=== PATIENT | male | born 1995 | race Caucasian/White ===

== ENCOUNTER 2019-09-28 23:05 | Inpatient (IN) | payer MEDICAID, SELFPAY ==
--- NOTE | 2019-09-28 23:08 | ECG_ITS ---
[facility] Test Date: 2019-09-29 Pat Name: Santos Olson Department: Room: 154 Gender: Male Clinical Leader: : 1995 Requested By: Magy Franco Order Number: [id number] Cooper MD: Corey Crisostomo M.D. Measurements Intervals [place] Rate: 93 P: 40 DE: 153 QRS: 5 QRSD: 120 T: 41 QT: 356 QTc: 443 Interpretive Statements SINUS RHYTHM MODERATE INTRAVENTRICULAR CONDUCTION DELAY [110+ ms QRS DURATION] Compared to ECG 01/18/2019 05:52:18 Intraventricular conduction delay now present Sinus tachycardia no longer present Indeterminate axis no longer present Electronically Signed On 09-29-2019 1:24:08 CDT by Corey Crisostomo M.D. [id number]
[2019-09-28 23:33] VITALS: BP 138/82; PULSE 109; RESP 16; TEMP 36.8; O2SAT 98
--- NOTE | 2019-09-29 00:15 | W.ED.PSYCH ---
HPI - Psych General: Chief Complaint: Psychiatric Symptoms Stated Complaint: si/mhe Time Seen by Provider: 09/28/19 23:54 Source: patient Limitations: other (Patient not cooperative) History of Present Illness: HPI Narrative: Santos is a 23-year-old male who comes in complaining of suicidal ideation. Patient is very withdrawn and not cooperative and appears to have a defiant attitude. He does not want to share with me what is going on. He does state though he is suicidal and has a plan or may have a plan but will not give me any definitive statement. He does request that he comes into the neuropsychiatric unit for help. Review of Systems General: Reports: Other (Patient uncooperative) Physical Exam Const: COMMON NORMALS: no acute distress, patient oriented x3, no limitations, healthy appearing and well nourished GENERAL APPEARANCE: cooperative, well kempt and well developed HENMT: COMMON NORMALS: normocephalic, atraumatic, external ears normal, EAC's normal and Normal external nose present HEAD & SCALP: normal to inspection, normocephalic and atraumatic FACE & SINUS: normal facial exam and face symmetric NOSE: Normal external nose present and Normal nares present EXTERNAL EAR: Yes external ears normal EXTERNAL AUDITORY CANAL: EAC's normal MOUTH: Normal oral and palatal mucosa present, lip normal and tongue normal Eye: COMMON NORMALS: Equal, round and reactive pupils present and conjunctivae normal GENERAL EYE: appearance normal, both eyes and all related structures ALIGNMENT: Yes alignment normal PERIORBITAL: periorbital findings normal EYELID: eyelids normal CONJUNCTIVA: Yes conjunctivae normal SCLERA: sclerae normal PUPIL: Yes Equal, round and reactive pupils present Neck/C-Spine: COMMON NORMALS: full ROM, no lymphadenopathy, supple, no meningeal signs and no JVD GENERAL: Yes normal visual inspection and Yes trachea midline Chest: COMMONS NORMALS: normal inspection of the chest and normal palpation of entire chest wall Resp: COMMON NORMALS: normal respiratory effort, No retractions and No use of accessory muscles EFFORT & INSPECTION: Yes able to speak in complete sentences and Yes symmetric chest movement AUSCULTATION: no crackles, no rales, no rhonchi and no wheezes Cardio: COMMON NORMALS: no JVD, regular rate, regular rhythm, S1 normal heart sound present and S2 normal heart sound present RATE: regular rate RHYTHM: regular rhythm HEART SOUNDS: S1 normal heart sound present, S2 normal heart sound present, no click, no gallops, no murmurs, no rubs and abnormal split S2 GI: COMMON NORMALS: Soft to palpation and No hepatosplenomegaly present PALPATION: Yes Soft to palpation, No Tenderness to palpation present (GI), No Guarding due to palpation present (GI), No Rigid due to palpation, Yes No hepatosplenomegaly present, No Hernia present, No Palpable mass present and No Pulsatile mass present : COMMON NORMALS: Yes no CVA tenderness BLADDER/KIDNEY EXAM: Yes no CVA tenderness Back/Pelvis: COMMON NORMALS: no CVA tenderness, thoracic and lumbar spine normal to inspection, no thoracic nor lumbar tenderness and thoraco-lumbar ROM normal Extremity: COMMON NORMALS: normal to inspection, full ROM, capillary refill normal, no joint enlargement, no clubbing, cyanosis or edema and no calf tenderness Neuro: COMMON NORMALS: patient oriented x3, CN's II-XII intact bilaterally, moves all extremities, no focal motor deficits and no sensory deficits noted MENINGEAL SIGNS: Yes no meningeal signs SPEECH: speech normal Psych: COMMON NORMALS: mental status grossly normal, Normal thought process present, cooperative, normal affect, speech normal and activity/motor behavior normal APPEARANCE: Yes well kempt SPEECH: Yes normal speech THOUGHT PROCESS: Normal thought process present Skin: COMMON NORMALS: no rashes or lesions noted, turgor normal, no jaundice, no petechiae and no mottling GENERAL SKIN EXAM: no rashes or lesions noted and turgor normal MDM - Psych MDM Narrative: Medical decision making narrative: The case was reviewed with Dr. Huff, he agrees that the patient is reluctant to cooperate with still admits to suicidal ideation he is high risk. He agrees to admitting the patient to the hospital for further evaluation and care. Lab Data: Labs: Lab Results 09/29/19 Range/Units 00:19 WBC 18.0 H (4.0-10.0) 10^3/ uL RBC 4.85 (4.1-5.3) 10^6/u L Hgb 13.9 (11.7-16.6) g/dL Hct 42.0 (42.0-52.0) % MCV 86.6 (80-94) fL MCH 28.7 (28.0-34.0) pg MCHC 33.1 (30.0-36.0) g/dL RDW 12.1 (12.1-15.1) % Plt Count 226 (130-400) 10^3/c mm MPV 9.3 (7.4-10.4) fL Neut % (Auto) 76.3 % Lymph % (Auto) 13.7 % Stanton % (Auto) 7.4 % Eos % (Auto) 1.8 % Baso % (Auto) 0.3 % Neut # (Auto) 13.73 H (1.8-7.7) 10^3/u L Lymph # (Auto) 2.5 (0.8-4.8) 10^3/u L Stanton # (Auto) 1.3 H (0.2-0.9) 10^3/u L Eos # (Auto) 0.3 (0.0-0.8) 10^3/u L Baso # (Auto) 0.1 (0.0-0.1) 10^3/u L Nucleated RBC % (a uto) 0 % Nucleated RBCs # 0.0 /100WBC EKG Data^: EKG 1: Attestation: I personally reviewed and interpreted this EKG as follows: EKG interpretation date: 09/29/19 EKG interpretation time: 00:37 Interpretation: Normal sinus rhythm at 93 beats a minute, nonspecific interventricular conduction delay, no acute ST or T wave changes, normal QTC. Discharge Plan Discharge Patient Disposition: Admitted As Inpatient Admit Provider: Crow Huff Clinical Impression: Suicidal ideation Condition: Stable Discharge Date/Time: 09/29/19 01:04 Coding Level of Care Code ED [employer] Swe[employer] Operator for Chg Fwd Exam Comprehensive
[2019-09-29 00:28] LABS: Basophils # 0.1 10^3/uL (0.0-0.1); Basophils % 0.3 %; Eosinophils # 0.3 10^3/uL (0.0-0.8); Eosinophils % 1.8 %; Hemoglobin 13.9 g/dL (11.7-16.6); Lymphocytes # 2.5 10^3/uL (0.8-4.8); Lymphocytes % 13.7 %; Mean Corpuscular HGB Conc 33.1 g/dL (30.0-36.0); Mean Corpuscular Hemoglobin 28.7 pg (28.0-34.0); Mean Corpuscular Volume 86.6 fL (80-94); Mean Platelet Volume 9.3 fL (7.4-10.4); Monocytes # 1.3 10^3/uL (0.2-0.9); Monocytes % 7.4 %; Neutrophils # 13.73 10^3/uL (1.8-7.7); Neutrophils % 76.3 %; Nucleated Red Blood Cells % 0 %; Platelet Count 226 10^3/cmm (130-400); Red Blood Count 4.85 10^6/uL (4.1-5.3); Red Cell Distribution Width 12.1 % (12.1-15.1)
[2019-09-29 00:50] LABS: Alanine Aminotransferase 17 U/L (0-41); Albumin Level 4.4 g/dL (3.5-5.2); Alkaline Phosphatase 77 IU/L (40-130); Anion Gap 14.3 (5-19); Aspartate Amino Transferase 12 U/L (0-40); Blood Urea Nitrogen 14 mg/dL (6-20); Calcium 8.6 mg/dL (8.5-10.5); Carbon Dioxide 24 mmol/L (22-29); Chloride 103 mmol/L (98-107); Glomerular Filtration Rate 139.8 mL/min (90-130); Glucose 121 mg/dL (65-115); Osmolality Calculated 283 mOsm/kg (285-295); Potassium 3.3 mmol/L (3.5-5.1); Sodium 138 mmol/L (136-145); Thyroid Stimulating Hormone 0.83 uIU/mL (0.27-4.20); Total Bilirubin 0.7 mg/dL (0.15-1.2); Total Protein 7.4 g/dL (6.6-8.7)
[2019-09-29 00:51] VITALS: BP 124/87; PULSE 71; RESP 18; O2SAT 97
[2019-09-29 00:54] LABS: Acetaminophen < 5.0 ug/mL (10-30); Alcohol Level < 10 mg/dL (0-10); Salicylate < 0.3 mg/dL (3-10)
[2019-09-29 01:17] LABS: Phenytoin Dilantin 0.8 ug/mL (10-20); Valproic Acid Level 2.8 ug/mL (50-100)
[2019-09-29 01:31] VITALS: BP 132/91; PULSE 95; RESP 13; TEMP 37; O2SAT 97
[2019-09-29 01:41] LABS: Lithium 0.1 mmol/L (0.6-1.2)
[2019-09-29 03:15] LABS: Amphetamines Screen Urine Positive (Negative); Barbiturates Screen Urine Negative (Negative); Benzodiazepines Screen Urine Negative (Negative); Cocaine Screen Urine Negative (Negative); Opiate Screen Urine Negative (Negative); PCP Screen Urine Negative (Negative); THC Screen Urine Negative (Negative)
[2019-09-29 06:00] VITALS: BP 132/80; PULSE 87; RESP 15; TEMP 36.4; O2SAT 96
[2019-09-29 14:00] VITALS: BP 135/70; PULSE 80; RESP 20; TEMP 37.2; O2SAT 97
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
[2019-09-29] MEDS: hyDROXYzine 25 mg Capsule 50 MG PO (21:44)
[2019-09-29] MEDS: trazodone 50 mg Tablet PO (21:44)
[2019-09-29] MEDS: OLANZapine 5 mg ODT PO (21:44)
[2019-09-29 22:00] VITALS: BP 127/87; PULSE 87; RESP 16; TEMP 36.8; O2SAT 98
[2019-09-30 06:00] VITALS: BP 116/75; PULSE 69; RESP 17; TEMP 36.9; O2SAT 96
--- NOTE | 2019-09-30 12:52 | PM.NPN ---
Subjective NPU Subjective: Interval history: Santos presents today with some slight improvement in his psychomotor retardation and was able to be more interactive in the interview. He still struggling to stay awake other than to take care of his basic needs as withdrawal from methamphetamine. He does report wanting to get off of the drugs as well as restart his medications. We discussed the risks benefits and alternatives of restarting his medications at appropriate doses and he understood and agreed to proceed in this note. Mental Status Exam MSE Comments: This is a well-nourished well-developed white male with limited progress, grooming and eye contact. No abnormal movements except for significant psychomotor retardation. More cooperative on exam in mild distress. Speech was limited and decreased rate and volume. Mood described as depressed affect congruent. Thought process organized. Thought content: Patient endorsed suicidal ideation but denied homicidal ideation and no delusions reported noted he denied any auditory or visual hallucinations attention and concentration were impaired memory is unreliable and not formally tested. He is semi-alert and oriented ?3. Insight and judgment are impaired. Impulse control are limited. Vitals/I&O/Wt Last Vital Signs Temp 98.4 F 09/30/19 06:00 Pulse 69 09/30/19 06:00 Resp 17 09/30/19 06:00 BP 116/78 09/30/19 06:00 Pulse Ox 96 09/30/19 06:00 Weight last 48 hrs Weight 87.09 kg Data NPU : 09/29/19 00:19 09/29/19 00:19 A&P Additional A&P Information (1) Depression: (2) Anxiety: (3) Methamphetamine addiction: (4) Withdrawal from methamphetamine: (5) Suicidal ideation: This is a 23-year-old white male with a history of methamphetamine addiction and mood dysregulation sometimes entering on psychosis who presents today with limited interaction with this field underwriter due to methamphetamine withdrawal but endorsing being off his medication and needing to get things back on track. 1. Continue current medications. Restart Abilify 10 mg by mouth every morning and Celexa 20 mg by mouth every morning. 2. Continue every 15 minute checks for safety. 3. Encourage individual, group and milieu therapy. 4. Will work with treatment team on Wednesday to find a sober living follow-up at the highest level of care to which he is willing to commit. Involuntary Hold Information 96 Hour Hold: 96 Hour Involuntary Admission: Yes 96 Hour Hold Ending Date: 10/04/19 96 Hour Hold Ending Time: 23:40 Attestations NPU Medical Necessity Statement*: Inpatient hospitalization is medically necessary and the clinically appropriate intervention at this time. Will monitor medications to make changes as indicated. Likely stay 3-5 days. Coding Level of Care Code Acute Bottling Attendant for Ruddy Guerrero
[2019-09-30 14:00] VITALS: BP 114/76; PULSE 88; RESP 18; TEMP 36.6; O2SAT 94
[2019-09-30] MEDS: ARIPiprazole 10 mg Tablet PO (14:12)
[2019-09-30] MEDS: citalopram 20 mg Tablet PO (14:12)
[2019-09-30] MEDS: OLANZapine 5 mg ODT PO (21:56)
[2019-09-30] MEDS: trazodone 50 mg Tablet PO (21:56)
[2019-09-30] MEDS: hyDROXYzine 25 mg Capsule 50 MG PO (21:56)
[2019-09-30 22:00] VITALS: BP 141/98; PULSE 102; RESP 18; TEMP 36.9; O2SAT 96
[2019-10-01 06:00] VITALS: BP 123/76; PULSE 67; RESP 16; TEMP 36.6; O2SAT 95
[2019-10-01] MEDS: ARIPiprazole 10 mg Tablet PO (08:38)
[2019-10-01] MEDS: citalopram 20 mg Tablet PO (08:38)
--- NOTE | 2019-10-01 11:55 | P.PN_ITS ---
Subjective NPU Subjective: Interval history: Santos presents today continuing to have significant psychomotor retardation. He is spending most of his time isolated to his but not causing any problems. He has okay restoring his medications he was taking before his last hospitalization. An essentially was sleeping most of the day. Mental Status Exam MSE Comments: This is a well-nourished well-developed white male with limited dress, grooming and eye contact. No abnormal movements except for significant psychomotor retardation. Mostly operative on exam in mild distress. Speech was limited and decreased rate and volume. Mood described as depressed affect congruent. Thought process organized. Thought content: Patient denied suicidal or homicidal ideation and no delusions reported noted he denied any auditory or visual hallucinations. Attention and concentration were impaired and memory is unreliable and but none were formally tested. He is semi-alert and oriented ?3. Insight and judgment are impaired. Impulse control are limited. Vitals/I&O/Wt Last Vital Signs Temp 98.7 F 10/01/19 20:24 Pulse 90 10/01/19 20:24 Resp 18 10/01/19 20:24 BP 125/74 10/01/19 20:24 Pulse Ox 96 10/01/19 20:24 Weight last 48 hrs Weight 87.09 kg Data NPU : 09/29/19 00:19 09/29/19 00:19 A&P Additional A&P Information (1) Depression: (2) Anxiety: (3) Methamphetamine addiction: (4) Withdrawal from methamphetamine: (5) Suicidal ideation: This is a 23-year-old white male with a history of methamphetamine addiction and mood dysregulation sometimes entering on psychosis who presents today with limited interaction with this software writer due to methamphetamine withdrawal but endorsing being off his medication and needing to get things back on track. 1. Continue current medications. 2. Continue every 15 minute checks for safety. 3. Encourage individual, group and milieu therapy. 4. Will work with treatment team on Wednesday to find a sober living follow-up at the highest level of care to which he is willing to commit. Involuntary Hold Information 96 Hour Hold: 96 Hour Involuntary Admission: Yes 96 Hour Hold Ending Date: 10/04/19 96 Hour Hold Ending Time: 23:40 Attestations NPU Medical Necessity Statement*: Inpatient hospitalization is medically necessary and the clinically appropriate intervention at this time. Will monitor medications to make changes as indicated. Likely stay 2-4 days. Coding Level of Care Code Acute Multiple Tube Winding Machine Operator for Ruddy Guerrero
[2019-10-01 14:00] VITALS: BP 118/64; PULSE 96; RESP 20; TEMP 36.6; O2SAT 99
[2019-10-01 20:24] VITALS: BP 125/74; PULSE 90; RESP 18; TEMP 37.1; O2SAT 96
[2019-10-02 06:00] VITALS: BP 122/76; PULSE 77; RESP 13; TEMP 37.6; O2SAT 97
[2019-10-02] MEDS: citalopram 20 mg Tablet PO (08:43)
[2019-10-02] MEDS: ARIPiprazole 10 mg Tablet PO (08:43)
--- NOTE | 2019-10-02 12:53 | PM.NPN ---
Subjective NPU Subjective: Interval history: Santos presents today for the first time able to really talk about his presentation here. He reports that he found a good friend about 5 days ago. He reports that he was very traumatic to find a body unexpectedly as his friend had a massive heart attack but then he started feeling like he should be the one to tell his daughter and family. Which created a lot of anxiety and he ended up making some poor choices and using and now he is coming out of the withdrawal. He is eating fine and he continues to sleep a lot. Mental Status Exam MSE Comments: This is a well-nourished well-developed white male with limited dress, grooming and eye contact. No abnormal movements except for improving psychomotor retardation. Cooperative on exam in no acute distress. Speech was decreased rate and volume. Mood described as a little better, affect congruent. Thought process organized. Thought content: Patient denied suicidal or homicidal ideation and no delusions reported noted he denied any auditory or visual hallucinations. Attention and concentration were intact and memory is more reliable and but none were formally tested. He is semi-alert and oriented ?3. Insight and judgment are improving. Impulse control is limited. Vitals/I&O/Wt Last Vital Signs Temp 97.3 F L 10/02/19 20:06 Pulse 116 H 10/02/19 20:06 Resp 17 10/02/19 20:06 BP 148/80 10/02/19 20:06 Pulse Ox 92 10/02/19 20:06 Weight last 48 hrs Weight 87.09 kg Data NPU : 09/29/19 00:19 09/29/19 00:19 A&P Additional A&P Information (1) Depression: (2) Anxiety: (3) Methamphetamine addiction: (4) Withdrawal from methamphetamine: (5) Suicidal ideation: This is a 23-year-old white male with a history of methamphetamine addiction and mood dysregulation sometimes bordering on psychosis who presents today with improve interaction with his provider, tolerating his medication and being more open to discussing his circumstances.. 1. Continue current medications. 2. Continue every 15 minute checks for safety. 3. Encourage individual, group and milieu therapy. 4. Will work with treatment team on Wednesday to find a sober living follow-up at the highest level of care to which he is willing to commit. Involuntary Hold Information 96 Hour Hold: 96 Hour Involuntary Admission: Yes 96 Hour Hold Ending Date: 10/04/19 96 Hour Hold Ending Time: 23:40 Attestations NPU Medical Necessity Statement*: Inpatient hospitalization is medically necessary and the clinically appropriate intervention at this time. Will monitor medications to make changes as indicated. Likely stay 2-3 days. Coding Level of Care Code Acute Commutator V Ring Assembler for Ruddy Guerrero
[2019-10-02 14:00] VITALS: BP 104/68; PULSE 77; RESP 20; TEMP 36.9; O2SAT 95
[2019-10-02 20:06] VITALS: BP 148/80; PULSE 116; RESP 17; TEMP 36.3; O2SAT 92
[2019-10-03 06:00] VITALS: BP 137/84; PULSE 88; RESP 12; TEMP 36.6; O2SAT 95
[2019-10-03] MEDS: ARIPiprazole 10 mg Tablet PO (08:10)
[2019-10-03] MEDS: citalopram 20 mg Tablet PO (08:10)
[2019-10-03 14:00] VITALS: BP 108/72; PULSE 95; RESP 18; TEMP 36.8; O2SAT 98
--- NOTE | 2019-10-03 16:56 | PM.NPN ---
Subjective NPU Subjective: Interval history: Santos presents today continuing to show improvement and adjusting the medication. He met with the treatment team and was developing a plan for what to do next. We reviewed his situation and discussed the risks benefits and alternatives of him discharging tomorrow most likely and he understood and agreed to proceed as documented in his note. Mental Status Exam MSE Comments: This is a well-nourished well-developed white male with adequate dress, grooming and eye contact. No abnormal movements except for resolving psychomotor retardation. Cooperative with exam in no acute distress. Speech was more normal rate and volume. Mood described as a getting better, affect congruent. Thought process organized. Thought content: Patient denied suicidal or homicidal ideation and no delusions reported noted he denied any auditory or visual hallucinations. Attention and concentration were intact and memory is more reliable and but none were formally tested. He is alert and oriented ?3. Insight and judgment are improving. Impulse control is limited. Vitals/I&O/Wt Last Vital Signs Temp 98.4 F 10/03/19 20:07 Pulse 94 10/03/19 20:07 Resp 16 10/03/19 20:07 BP 128/81 10/03/19 20:07 Pulse Ox 96 10/03/19 20:07 Data NPU : 09/29/19 00:19 09/29/19 00:19 A&P Additional A&P Information (1) Depression: (2) Anxiety: (3) Methamphetamine addiction: (4) Withdrawal from methamphetamine: (5) Suicidal ideation: This is a 23-year-old white male with a history of methamphetamine addiction and mood dysregulation sometimes bordering on psychosis who presents today with improved interaction with his provider, tolerating his medication and being more open to discussing his circumstances.. 1. Continue current medications. 2. Continue every 15 minute checks for safety. 3. Encourage individual, group and milieu therapy. 4. Will work with treatment team on Wednesday to find a sober living follow-up at the highest level of care to which he is willing to commit. Involuntary Hold Information 96 Hour Hold: 96 Hour Involuntary Admission: Yes 96 Hour Hold Ending Date: 10/04/19 96 Hour Hold Ending Time: 23:40 Attestations NPU Medical Necessity Statement*: Inpatient hospitalization is medically necessary and the clinically appropriate intervention at this time. Will monitor medications to make changes as indicated. Likely stay 1-2 days Coding Level of Care Code Acute Data Sciences Director for Ruddy Guerrero
[2019-10-03 20:07] VITALS: BP 128/81; PULSE 94; RESP 16; TEMP 36.9; O2SAT 96
[2019-10-04 06:00] VITALS: BP 144/86; PULSE 77; RESP 17; TEMP 36.7; O2SAT 97
[2019-10-04] MEDS: citalopram 20 mg Tablet PO (08:12)
[2019-10-04] MEDS: ARIPiprazole 10 mg Tablet PO (08:12)
[2019-10-04 11:10] VITALS: BP 144/86; PULSE 77; RESP 17; TEMP 36.7; O2SAT 97
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
[2019-10-04 11:49] VITALS: BP 144/86; PULSE 77; RESP 17; TEMP 36.7; O2SAT 97
== END 2019-10-04 11:59 | disposition home or self-care (01) | DRG 880 ==
LOC: ER 09-29 00:15 → NP 09-29 00:52
PROVIDERS: Emergency Medicine; Admitting Provider Psychiatry & Neurology Psychiatry; Visit Provider Psychiatry & Neurology Psychiatry
DX: F41.8 Other specified anxiety disorders (principal); F15.23 Other stimulant dependence with withdrawal; Z63.4 Disappearance and death of family member
CPT/HCPCS: 12345; 80053; 80156; 80164; 80178; 80185; 80306; 80307; 82542; 84443; 85025; 93005; 99284; 99285

== ENCOUNTER 2020-04-01 19:30 | Inpatient (IN) | payer MEDICAID, SELFPAY ==
[2020-04-01 19:42] VITALS: BP 127/83; PULSE 91; RESP 16; TEMP 36.3; O2SAT 100; BMI 28.5
--- NOTE | 2020-04-01 20:01 | ECG_ITS ---
[facility] Test Date: 2020-04-01 Pat Name: Santos Olson Department: Room: Gender: Male Head Of Mathematics: : 1995 Requested By: Latoya Pantoja Order Number: [id number] Allison MD: Melissa Rodriguez M.D. Measurements Intervals [place] Rate: 88 P: 56 UT: 155 QRS: -1 QRSD: 122 T: 45 QT: 364 QTc: 441 Interpretive Statements SINUS RHYTHM MODERATE INTRAVENTRICULAR CONDUCTION DELAY [110+ ms QRS DURATION] Compared to ECG 09/29/2019 00:37:07 No significant changes Electronically Signed On 04-02-2020 20:15:34 MACHINE HAMPER [employer]KER by Melissa Rodriguez M.D. [email or web address]
--- NOTE | 2020-04-01 20:03 | W.ED.PSYCH ---
HPI - Psych General: Chief Complaint: Psychiatric Symptoms Stated Complaint: psych eval- no si/hi Time Seen by Provider: 04/01/20 19:32 History of Present Illness: HPI Narrative: 24 year old male presents to the ED with increased schizophrenic symptoms - reports increased auditory hallucinations, reports out of his medication x 1-2 weeks, when asked where he gets his medication, he reports from behavioral health. [facility] medication has been filled through [facility] pharmacy, out of refills. Reports recent substance abuse, methamphetamine 2 days ago. He denies alcohol use. He is requesting admission to the stress unit to get rid of the voices. Reports living in a storage container in [place]; [facility] does not have a steady place to live. He reports his family will have nothing to do with him, his family lives here in [place]. He has history of suicidal ideations, September 2019 when he was previously admitted, was under the care of Dr. Huff; he ran out of medication with return of auditory hallucinations, diagnosed with depression and anxiety. He denies suicidal/homicidal ideation plans or thoughts; he is complaining of increased auditory hallucinations upon exam and reports they are very bothersome to him and increasing his stress level. He reports voices are calling his name; he reports voices are not giving him commands or ideas. MD complaint: feels depressed and other (increased auditory hallucinations) Onset (ago): week(s) (1-2) Duration: intermittent and getting worse History of same: Yes Relieving factors: medication Exacerbating factors: drug use Context: recent drug abuse, not taking psychiatric medications and significant life stressor (homeless status) Associated psychiatric symptoms: depression and auditory hallucinations Associated symptoms: Reports auditory hallucinations and depression (increased x 2 days); Deny visual hallucinations, homicidal ideation or suicidal ideation Treatments prior to arrival: none Review of Systems General: Reports: 10 or more systems reviewed and unremarkable except in HPI and below Const: Denies: fever(s), chills, body aches, fatigue, malaise or diaphoresis Eyes: Denies: change in vision, blurry vision, eye discomfort, eye redness or increased production of tears ENMT: Denies: throat pain, hoarseness, dental pain, ear or mastoid pain, disequilibrium, nasal discharge, nasal congestion, nasal obstruction or post nasal drip Card: Denies: chest pain, palpitations, irregular heart rhythm, swelling of feet/ankles, syncope, dyspnea on exertion, orthopnea or leg pain with exertion Resp: Denies: dyspnea, productive cough, non-productive cough, wheezing, change in phlegm color or chest congestion GI: Denies: abdominal pain, nausea, vomiting, dysphagia, early satiety, diarrhea, constipation or pain on defecation : Denies: difficulty urinating, dysuria, urinary urgency or nocturia Musc: Denies: neck pain, back pain, joint pain, joint swelling, joint stiffness, muscle cramps or muscle weakness Skin/Breast: Denies: rash, pruritus, erythema, skin swelling, changing lesions or changes in skin color Neuro: Reports: sensory changes (fingertips and toes - blames cold temperature for changes in sensation); Denies: headache(s), weakness in extremities, difficulty walking, vertigo, confusion, behavioral changes or involuntary movements Psych: Reports: anxiety (increased x 2 days), depression (increased x 2 days), hopelessness and auditory hallucinations; Denies: paranoia, visual hallucinations, tactile hallucinations, suicidal ideation or homicidal ideation Burt/Lymph: Denies: easy bruising PFS ED PFSH: Social History (Updated 04/01/20 @ 20:17 by Latoya Jackson ZYGLO INSPECTOR) Smoking and tobacco status: current every day smoker cigarettes Packs smoked per day: 1 Number of cigarettes per day: 1-5 Quit status (tobacco): not considering quitting Desire information about alcohol rehabilitation?: No Substance/Drug Use: current Substance/Drug use frequency: few times a week Substance/Drug use type: Amphetamines Desire information about substance/drug rehabilitation?: No Adopted: No Caregiver/support person: No Lives independently: Yes Housing: Homeless Marital status: Single Physical Exam Const: COMMON NORMALS: no acute distress, patient oriented x3, healthy appearing and alert EXAM LIMITATIONS: no altered mental status, no behavioral limitations and no physical limitations GENERAL APPEARANCE: cooperative, comfortable, well kempt, well developed and well hydrated; not anxious and not combative ORIENTATION/CONSCIOUSNESS: Yes awake, Yes oriented to person, Yes oriented to place and Yes oriented to time; not confused and not patient obtunded HENMT: COMMON NORMALS: normocephalic, atraumatic, external ears normal, TM's normal bilaterally, Normal external nose present and moist oral mucous membranes HEAD & SCALP: normal to inspection, normocephalic and atraumatic; no hematoma, no laceration, no occipital foramen tenderness and no raccoon eyes FACE & SINUS: normal facial exam, sinuses nontender and face symmetric NOSE: Normal external nose present and Normal nares present EXTERNAL EAR: Yes external ears normal TYMPANIC MEMBRANE: TM's normal bilaterally MOUTH: Normal oral and palatal mucosa present and tongue normal THROAT: posterior oropharynx normal and uvula midline Eye: COMMON NORMALS: Equal, round and reactive pupils present and EOMs intact bilaterally GENERAL EYE: appearance normal, both eyes and all related structures PUPIL: Yes Equal, round and reactive pupils present Neck/C-Spine: COMMON NORMALS: full ROM and no lymphadenopathy GENERAL: Yes normal visual inspection and Yes trachea midline CERVICAL SPINE: Yes cervical ROM normal Lymph: LYMPHATIC: no lymphadenopathy noted Chest: COMMONS NORMALS: normal inspection of the chest and normal palpation of entire chest wall CHEST: Yes Symmetrical chest wall rise Resp: COMMON NORMALS: normal respiratory effort, No retractions, No use of accessory muscles and clear to auscultation bilaterally EFFORT & INSPECTION: Yes able to speak in complete sentences AUSCULTATION: clear to auscultation bilaterally, no wheezes and lung sounds not diminished Cardio: COMMON NORMALS: regular rate, regular rhythm, S1 normal heart sound present, S2 normal heart sound present and Peripheral pulses 2+ throughout RATE: regular rate RHYTHM: regular rhythm HEART SOUNDS: S1 normal heart sound present and S2 normal heart sound present PERIPHERAL PULSES: Peripheral pulses 2+ throughout GI: COMMON NORMALS: Normal to inspection, nondistended, normoactive bowel sounds present, Soft to palpation and non-tender INSPECTION: Yes normal to inspection PALPATION: Yes Soft to palpation, No Guarding due to palpation present (GI), No Splenomegaly present and No Hernia present : COMMON NORMALS: Yes no CVA tenderness BLADDER/KIDNEY EXAM: Yes no CVA tenderness Back/Pelvis: COMMON NORMALS: no CVA tenderness, thoracic and lumbar spine normal to inspection, no thoracic nor lumbar tenderness, thoraco-lumbar ROM normal and straight leg raise negative bilaterally Extremity: COMMON NORMALS: normal to inspection, full ROM, capillary refill normal, no joint enlargement, no clubbing, cyanosis or edema, no calf tenderness and no pedal edema GENERAL: Yes normal exam except as noted Neuro: OLGA COMA SCALE: document GCS findings Olga coma scale eye opening: Spontaneous Olga coma scale verbal response: Orientated Olga coma scale motor response: Obey commands Olga coma scale total score: 15 COMMON NORMALS: patient oriented x3 and no focal motor deficits SENSORIUM/ORIENTATION: Yes alert, Yes oriented to person, Yes oriented to place and Yes oriented to time SPEECH: speech normal GAIT: Yes Normal gait present SENSORY EXAM: No sensory level loss detected MONOFILAMENT EXAM PERFORMED: Yes Monofilament Exam (small fiber function): L great toe: normal, L 3rd toe: normal, L 5th toe: normal, R great toe: normal, R 3rd toe: normal and R 5th toe: normal MOTOR EXAM: 5/5 motor strength present throughout, Pronator motor function not present, no tremor noted and Normal motor muscle tone present throughout Right pupil size (mm): 4 Left pupil size (mm): 4 Psych: COMMON NORMALS: mental status grossly normal, cooperative, speech normal, activity/motor behavior normal, denies homicidal ideation and denies suicidal ideation APPEARANCE: Yes grossly normal and Yes well kempt ATTITUDE: Yes Withdrawn affect present ACTIVITY/MOTOR BEHAVIOR: Yes appropriate eye contact SPEECH: Yes normal speech and Yes delayed MOOD & AFFECT: Yes Flat affect present THOUGHT PROCESS: Circumstantial thought process present THOUGHT CONTENT: Yes Hallucination(s) present auditory INSIGHT: Fair insight present (Psych) JUDGEMENT: Fair judgement present (Psych) Skin: COMMON NORMALS: no rashes or lesions noted and turgor normal GENERAL SKIN EXAM: no rashes or lesions noted and turgor normal MDM - Psych MDM Narrative: Medical decision making narrative: 24-year-old male patient presents to the emergency department requesting admission into the psychiatric stress unit due to increased auditory hallucinations. He is noncompliant with maintenance medication, citalopram, benztropine and Abilify. Upon medication review, last fill of medication completed on 12/06/[address] Huff. He received 30-day supply of citalopram and benztropine, 15 tablets of Abilify. He states does not see another psychiatrist nor does he attend outpatient services at [facility]. Previous inpatient psychiatric admission September 2019 with similar complaint. CBC unremarkable, chemistry with slightly low potassium, 3.4, was replaced with 20 mEq of potassium here in the ED; glucose 121, TSH normal, urine drug screen positive for methamphetamines, urinalysis with 2+ blood, patient asymptomatic and has no abdominal or urinary complaints. EtOH, Tylenol and salicylate levels all below normal, spoke with Dr. Tomas who agrees for admission into the psychiatric unit. Patient is requesting admission into the psychiatric unit due to increased stress, anxiety and depression associated with auditory hallucinations. He is voluntary. Denies homicidal or suicidal ideations plans or thoughts. Lab Data: Labs: Lab Results 04/01/20 04/01/20 04/01/20 Range/Units 20:20 20:20 20:35 WBC 9.9 (4.0-10.0) 10^3/ uL RBC 5.17 (4.1-5.3) 10^6/u L Hgb 14.8 (11.7-16.6) g/dL Hct 44.1 (42.0-52.0) % MCV 85.3 (80-94) fL MCH 28.6 (28.0-34.0) pg MCHC 33.6 (30.0-36.0) g/dL RDW 11.9 L (12.1-15.1) % Plt Count 311 (130-400) 10^3/c mm MPV 9.6 (7.4-10.4) fL Neut % (Auto) 59.1 % Lymph % (Auto) 31.3 % [place] % (Auto) 6.0 % Eos % (Auto) 2.9 % Baso % (Auto) 0.5 % Neut # (Auto) 5.84 (1.8-7.7) 10^3/u L Lymph # (Auto) 3.1 (0.8-4.8) 10^3/u L [place] # (Auto) 0.6 (0.2-0.9) 10^3/u L Eos # (Auto) 0.3 (0.0-0.8) 10^3/u L Baso # (Auto) 0.1 (0.0-0.1) 10^3/u L Nucleated RBC % (a uto) 0 % Nucleated RBCs # 0.0 /100WBC Sodium 138 (136-145) mmol/L Potassium 3.4 L (3.5-5.1) mmol/L Chloride 103 (98-107) mmol/L Carbon Dioxide 25 (22-29) mmol/L Anion Gap 13.4 (5-19) BUN 8 (6-20) mg/dL Creatinine 0.6 L (0.7-1.2) mg/dL GFR Calculation 165.5 H (90-130) mL/min Glucose 121 H (65-115) mg/dL Calculated Osmolal ity 286 (285-295) mOsm/k g Calcium 9.0 (8.5-10.5) mg/dL Total Bilirubin 0.2 (0.15-1.2) mg/dL AST 9 (0-40) U/L ALT 15 (0-41) U/L Alkaline Phosphata se 60 (40-130) IU/L Total Protein 6.2 L (6.6-8.7) g/dL Albumin 3.9 (3.5-5.2) g/dL Globulin 2.3 (1.3-4.6) g/dL TSH 0.46 (0.27-4.20) uIU/ mL Urine Color Yellow (Yellow) Urine Appearance Clear (CLEAR) Urine pH 9 H (5-7) Ur Specific Gravit y 1.010 (1.005-1.030) Urine Protein 2+ H (Negative) Urine Glucose (UA) Norm (Normal) Urine Ketones Negative (Negative) Urine Blood 2+ H (Negative) Urine Nitrate Negative (Negative) Urine Bilirubin Neg (Negative) Urine Urobilinogen Norm (Negative) mg/dL Ur Leukocyte Genny ase Negative (Negative) Urine RBC 0-4 H (0-2) /hpf Urine WBC 10-15 H (0-5) /hpf Ur Squamous Epith Cells 0-4 H (0-5) /hpf Amorphous Sediment Not Reportable Urine Bacteria 1+ H (NONE) /hpf Salicylates < 0.3 L (3-10) mg/dL Urine Opiates Scre en (Negative) ng/mL Acetaminophen < 5.0 L (10-30) ug/mL Ur Barbiturates Sc reen (Negative) ng/mL Ur Phencyclidine S crn (Negative) ng/mL Ur Amphetamines Sc reen (Negative) ng/mL U Benzodiazepines Scrn (Negative) ng/mL Urine Cocaine Scre en (Negative) ng/mL U Marijuana (THC) Screen (Negative) ng/mL Ethyl Alcohol < 10 (0-10) mg/dL 04/01/20 Range/Units 20:35 WBC (4.0-10.0) 10^3/ uL RBC (4.1-5.3) 10^6/u L Hgb (11.7-16.6) g/dL Hct (42.0-52.0) % MCV (80-94) fL MCH (28.0-34.0) pg MCHC (30.0-36.0) g/dL RDW (12.1-15.1) % Plt Count (130-400) 10^3/c mm MPV (7.4-10.4) fL Neut % (Auto) % Lymph % (Auto) % [place] % (Auto) % Eos % (Auto) % Baso % (Auto) % Neut # (Auto) (1.8-7.7) 10^3/u L Lymph # (Auto) (0.8-4.8) 10^3/u L [place] # (Auto) (0.2-0.9) 10^3/u L Eos # (Auto) (0.0-0.8) 10^3/u L Baso # (Auto) (0.0-0.1) 10^3/u L Nucleated RBC % (a uto) % Nucleated RBCs # /100WBC Sodium (136-145) mmol/L Potassium (3.5-5.1) mmol/L Chloride (98-107) mmol/L Carbon Dioxide (22-29) mmol/L Anion Gap (5-19) BUN (6-20) mg/dL Creatinine (0.7-1.2) mg/dL GFR Calculation (90-130) mL/min Glucose (65-115) mg/dL Calculated Osmolal ity (285-295) mOsm/k g Calcium (8.5-10.5) mg/dL Total Bilirubin (0.15-1.2) mg/dL AST (0-40) U/L ALT (0-41) U/L Alkaline Phosphata se (40-130) IU/L Total Protein (6.6-8.7) g/dL Albumin (3.5-5.2) g/dL Globulin (1.3-4.6) g/dL TSH (0.27-4.20) uIU/ mL Urine Color (Yellow) Urine Appearance (CLEAR) Urine pH (5-7) Ur Specific Gravit y (1.005-1.030) Urine Protein (Negative) Urine Glucose (UA) (Normal) Urine Ketones (Negative) Urine Blood (Negative) Urine Nitrate (Negative) Urine Bilirubin (Negative) Urine Urobilinogen (Negative) mg/dL Ur Leukocyte Genny ase (Negative) Urine RBC (0-2) /hpf Urine WBC (0-5) /hpf Ur Squamous Epith Cells (0-5) /hpf Amorphous Sediment Urine Bacteria (NONE) /hpf Salicylates (3-10) mg/dL Urine Opiates Scre en Negative (Negative) ng/mL Acetaminophen (10-30) ug/mL Ur Barbiturates Sc reen Negative (Negative) ng/mL Ur Phencyclidine S crn Negative (Negative) ng/mL Ur Amphetamines Sc reen Positive H (Negative) ng/mL U Benzodiazepines Scrn Negative (Negative) ng/mL Urine Cocaine Scre en Negative (Negative) ng/mL U Marijuana (THC) Screen Negative (Negative) ng/mL Ethyl Alcohol (0-10) mg/dL EKG Data^: EKG 1: EKG interpretation date: 04/01/20 EKG interpretation time: 20:55 Prior EKG tracings: available for review (09/29/2019) Other EKG comments: Sinus rhythm,borderline ECG, moderate intraventricular conduction delay, ventricular rate 88; no acute changes from 09/29/2019 Discharge Plan Discharge Patient Disposition: Admitted As Inpatient Admit Provider: Thania Tomas Clinical Impression: Auditory hallucinations, Methamphetamine abuse Condition: Stable Coding Level of Care Code ED Laborer Adjustable Steel Joist for Chg Fwd Exam Comprehensive
[2020-04-01 20:18] VITALS: BP 117/69; PULSE 89; RESP 14; O2SAT 97
--- NOTE | 2020-04-01 20:18 | PC.PHAR ---
pt states he ran out of his medications about a week ago-ext med history shows celexa 20mg daily and benztropine 1mg bid was last filled on 12/06/2019 30d/s and aripiprazole 10mg daily for a 15d/s
[2020-04-01 20:33] LABS: Basophils # 0.1 10^3/uL (0.0-0.1); Basophils % 0.5 %; Eosinophils # 0.3 10^3/uL (0.0-0.8); Eosinophils % 2.9 %; Hematocrit 44.1 % (42.0-52.0); Hemoglobin 14.8 g/dL (11.7-16.6); Lymphocytes # 3.1 10^3/uL (0.8-4.8); Lymphocytes % 31.3 %; Mean Corpuscular HGB Conc 33.6 g/dL (30.0-36.0); Mean Corpuscular Hemoglobin 28.6 pg (28.0-34.0); Mean Corpuscular Volume 85.3 fL (80-94); Mean Platelet Volume 9.6 fL (7.4-10.4); Monocytes # 0.6 10^3/uL (0.2-0.9); Neutrophils # 5.84 10^3/uL (1.8-7.7); Neutrophils % 59.1 %; Nucleated Red Blood Cells % 0 %; Platelet Count 311 10^3/cmm (130-400); Red Blood Count 5.17 10^6/uL (4.1-5.3); Red Cell Distribution Width 11.9 % (12.1-15.1); White Blood Count 9.9 10^3/uL (4.0-10.0)
[2020-04-01 20:55] VITALS: BP 112/68; PULSE 95; RESP 16; O2SAT 97
[2020-04-01 21:04] LABS: Alanine Aminotransferase 15 U/L (0-41); Albumin Level 3.9 g/dL (3.5-5.2); Alkaline Phosphatase 60 IU/L (40-130); Anion Gap 13.4 (5-19); Aspartate Amino Transferase 9 U/L (0-40); Blood Urea Nitrogen 8 mg/dL (6-20); Carbon Dioxide 25 mmol/L (22-29); Chloride 103 mmol/L (98-107); Globulin 2.3 g/dL (1.3-4.6); Glomerular Filtration Rate 165.5 mL/min (90-130); Glucose 121 mg/dL (65-115); Osmolality Calculated 286 mOsm/kg (285-295); Potassium 3.4 mmol/L (3.5-5.1); Sodium 138 mmol/L (136-145); Thyroid Stimulating Hormone 0.46 uIU/mL (0.27-4.20); Total Bilirubin 0.2 mg/dL (0.15-1.2); Total Protein 6.2 g/dL (6.6-8.7)
[2020-04-01 21:16] LABS: Amphetamines Screen Urine Positive (Negative); Barbiturates Screen Urine Negative (Negative); Benzodiazepines Screen Urine Negative (Negative); Cocaine Screen Urine Negative (Negative); Opiate Screen Urine Negative (Negative); PCP Screen Urine Negative (Negative); THC Screen Urine Negative (Negative)
[2020-04-01 21:17] LABS: Acetaminophen < 5.0 ug/mL (10-30); Alcohol Level < 10 mg/dL (0-10); Salicylate < 0.3 mg/dL (3-10)
[2020-04-01 21:32] LABS: Urine Appearance Clear (CLEAR); Urine Color Yellow (Yellow)
[2020-04-01 21:33] LABS: Add Urine Microscopic? YES; Bacteria Urine 1+ /hpf; Bilirubin Urine Neg (Negative); Blood Urine 2+ (Negative); Glucose Urine UA Norm (Normal); Ketones Urine Negative (Negative); Leukocyte Esterase Urine Negative (Negative); Nitrate Urine Negative (Negative); Protein Urine 2+ (Negative); RBC Urine 0-4 /hpf (0-2); Squamous Epithelial Cell Urine 0-4 /hpf (0-5); Urobilinogen Urine Norm (Negative); pH Urine 9 (5-7)
[2020-04-01 21:34] LABS: Add Urine Culture? Yes
[2020-04-01 21:35] VITALS: BP 116/75; PULSE 86; RESP 16; O2SAT 96
[2020-04-01 22:00] VITALS: BP 121/64; PULSE 85; RESP 14; O2SAT 95
[2020-04-01 23:37] VITALS: BP 102/63; PULSE 86; RESP 18; TEMP 36.5; O2SAT 97
[2020-04-01] MEDS: hyDROXYzine 25 mg Capsule 50 MG PO (23:51)
[2020-04-01] MEDS: trazodone 50 mg Tablet PO (23:51)
[2020-04-02 06:24] VITALS: BP 122/75; PULSE 78; RESP 18; TEMP 36.5; O2SAT 98
--- NOTE | 2020-04-02 10:46 | P.HP_ITS ---
Providers/Chief Complaint Admitting Physician: Thania Tomas DO Chief Complaint: Worsening auditory hallucinations, depression HPI NPU History of Present Illness Santos Olson is a 24 year old male with reported history of bipolar disorder, schizophrenia and longstanding polysubstance abuse presented to the emergency department with complaint of worsening auditory hallucinations, depressive symptoms. Patient denied any suicidal ideation or thoughts about self-harm but reports that he has ongoing stressors to include being homeless with minimal support. Patient reports being off his medication for several months and states that he had not seen a mental health provider since his last psychiatric admission in September 2019. Patient is a difficult historian providing very brief responses and stating that he does not recall past events or history, poor rapport although cooperates with interview with some prompting. Patient currently reports depressive symptoms, does not quantify, currently deny ing any suicidal ideation or thoughts about self-harm. Patient reports multiple past self-harm episodes and reports past suicide attempt by overdose with pills several years ago but denies any recent attempts or self-harm behavior. Patient reports recent worsening auditory hallucinations although currently denying any auditory hallucinations. When asked about temporal relationship with use of methamphetamine, patient unable to provide any period of time in which he had gone more than a few weeks without use of any substances. Patient not currently demonstrating any disorganized speech or behavior. Patient denies any past life-threatening trauma exposure, denies any PTSD symptoms Patient reports intermittent anxiety symptoms but denies any current anxiety symptoms, reports stress, worries secondary to ongoing life stress, living arrangement. Patient reports that he does not have any financial means currently of supporting himself but reports occasionally stealing in order to buy drugs. Reports being estranged from family. Patient reports being voluntary for medication stabilization, hospitalization. Review of Systems General: Reports: 10 or more systems reviewed and unremarkable except in HPI and below Meds NPU Home Medications Medication Instructions Recorded Confirmed Last Taken Type aripiprazole 10 mg PO DAILY 30 Days #30 tab 10/04/19 04/01/20 Unknown Rx benztropine 1 mg PO BID PRN 30 Days #60 tab 10/04/19 04/01/20 Unknown Rx citalopram 20 mg PO DAILY 30 Days #30 tab 10/04/19 04/01/20 Unknown Rx Allergies Allergy/AdvReac Type Severity Reaction Status Date / Time Influenza Virus Vaccines Allergy ADR-Muscle Verified 04/01/20 20:18 Pain PFSH NPU PFSH: Social History Smoking and tobacco status: current every day smoker cigarettes Packs smoked per day: 1 Number of cigarettes per day: 1-5 Quit status (tobacco): not considering quitting Desire information about alcohol rehabilitation?: No Substance/Drug Use: current Substance/Drug use frequency: few times a week Substance/Drug use type: Amphetamines Desire information about substance/drug rehabilitation?: No Adopted: No Caregiver/support person: No Lives independently: Yes Housing: Homeless Marital status: Single Other Psychiatric History: Other Psychiatric History: Patient provides minimal information but per chart review, patient with mental health contact as a young child. Reports previously being diagnosed as bipolar disorder, schizophrenia Reports multiple past psychiatric hospitalizations, states last psychiatric hospitalization was September 2019 at this facility Reports past suicide attempt by overdose, reports a couple of years ago, denies any recent self-harm behavior Mental Status Exam MSE Comments: Appears stated age, unshaven, stocky, wearing hospital scrubs, dirty hands, calm, dismissive but cooperative with interview after prompting, poor rapport, poor eye contact Psychomotor activity is neither increased nor decreased, no agitation Speech is normal rate and volume, spontaneous, fair articulation, not pressured I feel okay, full range, not labile Alert and oriented to person, place, time, situation Remote and recent memory is difficult to assess secondary to lack of participation, patient stating I do not remember Concentration is fair at best per interview Intellectual functioning appears to be average at best based on vocabulary, interview Thought process, linear but brief, no flight of ideas, no looseness of associations Thought content, no delusions, no hallucinations, does not appear to be attending to any internal stimuli, no suicidal or homicidal ideation Insight and judgment appear to be fair Vitals/I&O/Wt Last Vital Signs Temp 97.7 F 04/02/20 06:24 Pulse 78 04/02/20 06:24 Resp 18 04/02/20 06:24 BP 122/75 04/02/20 06:24 Pulse Ox 98 04/02/20 06:24 Weight last 48 hrs Weight 92.986 kg Data NPU : 04/01/20 20:20 04/01/20 20:20 A&P Assessment and plan (1) Psychosis: Status: Acute (2) Depression: Status: Acute (3) Methamphetamine abuse: Status: Acute Additional A&P Information Patient with longstanding history of bipolar disorder, schizophrenia although u nable to discern any clear periods of time of psychotic symptoms in the absence of any substance use currently presenting with worsening auditory loosening Nations in the context of recent methamphetamine use. Patient also reporting depressive symptoms which he states has responded to citalopram in the past but has been noncompliant since last psychiatric hospitalization in September 2019. Patient would likely benefit from medication stabilization and coordination for resources post discharge. VOLUNTARY ADMIT to inpatient psychiatry START citalopram 10 mg daily targeting depressive symptoms Continue observation for any worsening psychotic symptoms and for diagnostic clarification Coordinate with social media marketer for post discharge psychiatric follow-up and resources Involuntary Hold Information 96 Hour Hold: 96 Hour Involuntary Admission: No 96 Hour Hold Ending Date: 10/04/19 96 Hour Hold Ending Time: 23:40 Attestations NPU Medical Necessity Statement*: Patient requires psychiatric hospitalization for diagnostic clarification and medication stabilization as well as coordination for safe discharge including post discharge follow-up Anticipate patient's hospital stay exceeding 2 midnights Time Spent in Patient Care: Greater than 35 minutes (>than 50% of time spent in counselling and/or direct pt care on unit) . Coding Level of Care Code Acute Collet Maker for Ruddy Guerrero Diagnoses Psychosis F29 Depression F32.9 Methamphetamine abuse F15.10
--- NOTE | 2020-04-02 13:30 | PC.RESP ---
SMOKING CESSATION INFORMATION SENT TO PATIENT.
[2020-04-02 14:00] VITALS: BP 111/70; PULSE 80; RESP 80; TEMP 36.6; O2SAT 97
[2020-04-02 20:45] VITALS: BP 106/60; PULSE 78; RESP 19; TEMP 36.9; O2SAT 97
[2020-04-03 06:00] VITALS: BP 118/72; PULSE 74; RESP 19; TEMP 36.7; O2SAT 97
--- NOTE | 2020-04-03 12:14 | PM.NPN ---
Subjective NPU Subjective: Interval history: Denies any psychotic symptoms, denies any auditory or visual destinations, denies any delusions Continues report some depressive symptoms, no interval suicidal ideation Reports being compliant with his medication, denies any medication side effects Reports improving appetite Reports sleeping fair, feels rested No interval behavioral disturbances reported Mental Status Exam MSE Comments: Appears stated age, tired appearing, appropriately dressed, unkempt, calm, cooperative, interactive, good eye contact Psychomotor activity is somewhat decreased, no agitation Speech is low volume, normal rate, spontaneous, fair articulation, not pressured I feel little better, , constricted, not labile Alert and oriented to person, place, time, situation Memory and concentration appear to be intact primary Thought process, linear but brief, no flight of ideas, no looseness of associations Thought content, no delusions, no hallucinations, no suicidal homicidal ideation Insight and judgment appear to be fair Vitals/I&O/Wt Last Vital Signs Temp 98.1 F 04/03/20 06:00 Pulse 74 04/03/20 06:00 Resp 19 H 04/03/20 06:00 BP 118/72 04/03/20 06:00 Pulse Ox 97 04/03/20 06:00 Weight last 48 hrs Weight 92.986 kg Data NPU : 04/01/20 20:20 04/01/20 20:20 Micro: Microbiology 04/01/20 20:35 Urine Culture - Preliminary Urine,Clean Catch Microbiology 04/01/20 20:35 Urine,Clean Catch Urine Culture - Preliminary A&P Assessment and plan (1) Depression: Status: Acute Qualifiers: Depression Type: unspecified Qualified Code(s): F32.9 - Major depressive disorder, single episode, unspecified (2) Methamphetamine abuse: Status: Acute Additional A&P Information Continues to report significant depressive symptoms, denies any interval suicidal ideation, denies any interval psychotic symptoms CONTINUE current medication, continue to monitor Continue to encourage participation in unit milieu Involuntary Hold Information 96 Hour Hold: 96 Hour Involuntary Admission: No 96 Hour Hold Ending Date: 10/04/19 96 Hour Hold Ending Time: 23:40 Attestations NPU Medical Necessity Statement*: Continues require psychiatric hospitalization for medication stabilization as well as coordination for safe discharge Coding Level of Care Code Acute Multi Site Leasing Consultant for Ruddy Guerrero Diagnoses Depression F32.9 Depression Type: unspecified Methamphetamine abuse F15.10
[2020-04-03 13:38] VITALS: BP 127/66; PULSE 81; RESP 18; TEMP 36.4; O2SAT 97
[2020-04-03 19:42] VITALS: BP 131/74; PULSE 102; RESP 18; TEMP 37; O2SAT 95
[2020-04-03] MEDS: hyDROXYzine 25 mg Capsule 50 MG PO (19:54)
[2020-04-03] MEDS: trazodone 50 mg Tablet PO (19:55)
[2020-04-04 06:00] VITALS: BP 109/72; PULSE 70; RESP 17; TEMP 36.7; O2SAT 96
--- NOTE | 2020-04-04 12:31 | P.PN_ITS ---
Subjective NPU Subjective: Interval history: Denies any interval mood symptoms, denies any depressive symptoms, denies any suicidal ideation Denies any interval psychotic symptoms Reports interest in pursuing post discharge substance treatment but has not called yet but plans to call this afternoon Discussed potential discharge if patient is not participating in care Reports being compliant with medication, denies any medication side effects Mental Status Exam MSE Comments: Sitting on his bed, appropriately dressed, calm, cooperative, interactive, good eye contact Psychomotor activity is somewhat decreased, no agitation Speech is low volume, normal rate, spontaneous, fair articulation, not pressured I feel okay, , full range, not labile Alert and oriented to person, place, time, situation Memory and concentration appear to be intact primary Thought process, linear but brief, no flight of ideas, no looseness of associations Thought content, no delusions, no hallucinations, no suicidal homicidal ideation Insight and judgment appear to be fair Vitals/I&O/Wt Last Vital Signs Temp 98.1 F 04/04/20 06:00 Pulse 70 04/04/20 06:00 Resp 17 04/04/20 06:00 BP 109/72 04/04/20 06:00 Pulse Ox 96 04/04/20 06:00 Data NPU : 04/01/20 20:20 04/01/20 20:20 Micro: Microbiology 04/01/20 20:35 Urine Culture - Final Urine,Clean Catch Microbiology 04/01/20 20:35 Urine,Clean Catch Urine Culture - Final A&P Assessment and plan (1) Depression: Status: Acute Qualifiers: Depression Type: unspecified Qualified Code(s): F32.9 - Major depressive disorder, single episode, unspecified (2) Methamphetamine abuse: Status: Acute Additional A&P Information Patient reports improvement in mood, denies any interval psychotic symptoms CONTINUE current medication, continue to monitor Anticipate discharge tomorrow Involuntary Hold Information 96 Hour Hold: 96 Hour Involuntary Admission: No 96 Hour Hold Ending Date: 10/04/19 96 Hour Hold Ending Time: 23:40 Attestations NPU Medical Necessity Statement*: Continues to require psychiatric hospitalization for observation and coordinating for safe discharge Coding Level of Care Code Acute Head Insulation Board Saw Operator for Ruddy Fwkali Diagnoses Depression F32.9 Depression Type: unspecified Methamphetamine abuse F15.10
[2020-04-04 14:00] VITALS: BP 131/75; PULSE 96; RESP 18; TEMP 36.4; O2SAT 97
[2020-04-04] MEDS: citalopram 20 mg Tablet 10 MG PO (14:39)
[2020-04-04 22:00] VITALS: BP 145/83; PULSE 87; RESP 18; TEMP 36.6; O2SAT 95
--- NOTE | 2020-04-05 01:11 | PC.NURSE ---
PM Assessment Pt is smiling and talkative with staff. Pt reports using Meth to help with AH but says it backfired and made them worse and that is why he is here on the unit. Pt denies AH/VH at this time. Denies SI/HI. Heart/lung sounds are normal, v/s normal. pt denies pain. will continue to monitor pt for any changes of behavior or physical condition.
[2020-04-05 06:00] VITALS: BP 136/75; PULSE 68; RESP 17; TEMP 36.8; O2SAT 98
[2020-04-05] MEDS: citalopram 20 mg Tablet 10 MG PO (07:42)
--- NOTE | 2020-04-05 11:47 | PM.NPTHER ---
NPU Therapy Progress Note Therapy Progress Note Date: 04/04/20 Time In: 17:30 Time Out: 18:00 Symptoms Reported: Depression Mood: relaxed, open, sad Progress Note: SUBSTANCE ABUSE SERVICES DIRECTOR spoke with Santos who initially tells SUBSTANCE ABUSE SERVICES DIRECTOR that he has talked to many therapists and talking doesn't help anything ; however, he continues to speak with this SUBSTANCE ABUSE SERVICES DIRECTOR. He tells SUBSTANCE ABUSE SERVICES DIRECTOR about his childhood, being raised by his grandmother, and concerns that he may be a lost cause due to being so far away from the person he truly is. He recounts his grandmother looking in his eyes and telling me she doesn't even recognize me . He has shame from things done in the past but is not specific. He denies ever talking about these things in therapy and he says it is hard to talk. He exhibits some paranoid bx as he speaks about feeling he can be easily led when he lets his guard down and having no control over this. Santos say this is why he keeps his guard up most of the time. He does say he has tried to kill himself in the past but says it doesn't work . He ultimately believes he still has a purpose for living but is unsure if he can make the choices that would lead him there. He is concerned about not being able to get into [facility]:[address] [place] [address] and says what then? . SUBSTANCE ABUSE SERVICES DIRECTOR educated about [facility] services, and specifically therapy process. He was encouraged about his role in determining if the therapist he is put with will be compatible with him and ultimately, if not, to request a change. He was educated on ways therapist are trained to guide instead of his understanding of fixing his problems. Intervention: validation, education, reflective listening, encouragement Reported Goals Before Discharge: get in contact with [facility]: .
--- NOTE | 2020-04-05 12:12 | P.DS_ITS ---
Diagnoses at Discharge Discharge Diagnosis (1) Depression: Status: Acute Qualifiers: Depression Type: unspecified Qualified Code(s): F32.9 - Major depressive disorder, single episode, unspecified (2) Methamphetamine abuse: Status: Acute Reason for Visit Reason for Visit: Worsening auditory hallucinations, depression Hospital Course Hospital Course 24 year old male with reported history of bipolar disorder, schizophrenia and longstanding polysubstance abuse presented to the emergency department with complaint of worsening auditory hallucinations, depressive symptoms. Patient denied any suicidal ideation or thoughts about self-harm but reports that he has ongoing stressors to include being homeless with minimal support. Patient also reported that he had not followed up with psychiatry since his discharge from this facility in September 2019. Patient reported some auditory hallucinations at the time of admission but also had recent methamphetamine use. He was also reporting some depressive symptoms. Patient's auditory hallucinations quickly resolved within the first day of hospitalization and was started on citalopram 10 mg daily which she tolerated well. Reports that he had not been compliant wi th his medication after discharge from last psychiatric hospitalization. Patient reports difficulty with transportation and ability to get medication as reasons for his lack of compliance. Patient communicated his understanding of the need to abstain from the use of substances and alcohol as well as the need for substance treatment but was not particularly motivated throughout hospital stay and contacting resources. Patient did not demonstrate any behavioral disturbances throughout his hospital stay. He was not suicidal or psychotic at the time of discharge and did not appear to pose an imminent threat of harm to self or others. Low to moderate risk of harm to self and others given no current suicidal ideation or any psychotic symptoms although patient's risk may be elevated if he continues to abuse illicit substances or uses alcohol leading to unexpected, impulsive behavior. Risk mitigation included psychiatric hospitalization for observation, medication stabilization, recommendation to abstain from the use of substances and alcohol as well as coordination for safe discharge. Patient was able to communicate his understanding of the need to abstain from the use of substances and alcohol as well as the need for being compliant with his medication, medication management and substance counseling/treatment in order to further mitigate his risk of harm to self and others. Involuntary Hold Information 96 Hour Hold: 96 Hour Involuntary Admission: No 96 Hour Hold Ending Date: 10/04/19 96 Hour Hold Ending Time: 23:40 Mental Status Exam MSE Comments: Appropriately groomed and dressed, polite, interactive, good eye contact Psychomotor activity is somewhat decreased, no agitation Speech is normal volume, normal rate, spontaneous, fair articulation, not pressured I feel pretty good, , full range, not labile Alert and oriented to person, place, time, situation Memory and concentration appear to be intact primary Thought process, linear but brief, no flight of ideas, no looseness of associations Thought content, no delusions, no hallucinations, no suicidal homicidal ideation Insight and judgment appear to be fair Discharge Data Vitals: Last Vital Signs Temp 98.2 F 04/05/20 06:00 Pulse 68 04/05/20 06:00 Resp 17 04/05/20 06:00 BP 136/75 04/05/20 06:00 Pulse Ox 98 04/05/20 06:00 Discharge Plan Discharge Patient Disposition: Home Condition: Stable Prescriptions: Continued citalopram 20 mg tablet 20 mg PO DAILY 30 Days Qty: 30 RF: 1 Discontinued benztropine 1 mg Tablet 1 mg PO BID PRN (Reason: Mild Extrapyramidal symptoms) 30 Days Qty: 60 RF: 1 aripiprazole 10 mg tablet 10 mg PO DAILY 30 Days Qty: 30 RF: 0 Discharge Orders: Discharge Order (Routine); Ordered 04/05/20 Ordered By: Thania Tomas Discharge Diet: Regular Discharge Activity: Resume usual activity Discharge Attestations NPU Time Spent in Discharge Care*: greater than 30 min Coding Level of Care Code Acute Sliver Former for Ruddy Guerrero Diagnoses Depression F32.9 Depression Type: unspecified Methamphetamine abuse F15.10
[2020-04-05 12:15] VITALS: BP 136/75; PULSE 68; RESP 17; TEMP 36.8; O2SAT 98
== END 2020-04-05 12:59 | disposition home or self-care (01) | DRG 885 ==
LOC: ER 22:22 → NP 22:59
PROVIDERS: Admitting Provider Psychiatry & Neurology Psychiatry; Emergency Provider Nurse Practitioner Family; Visit Provider Psychiatry & Neurology Psychiatry
DX: F29 Unspecified psychosis not due to a substance or known physiological condition (principal); F32.9 Major depressive disorder, single episode, unspecified; F20.9 Schizophrenia, unspecified; Z59.0 Homelessness; F17.210 Nicotine dependence, cigarettes, uncomplicated; F15.10 Other stimulant abuse, uncomplicated
CPT/HCPCS: 12345; 80053; 80306; 80307; 81001; 84443; 85025; 87086; 93005; 99284

== ENCOUNTER 2020-05-22 23:26 | Emergency (ER) | payer MEDICAID, SELFPAY ==
[2020-05-22 23:47] VITALS: BP 144/83; PULSE 122; RESP 18; TEMP 36.7; O2SAT 98; BMI 33.0
--- NOTE | 2020-05-23 00:07 | USR_ITS ---
PROCEDURE INFORMATION: Exam: US Duplex Left Lower Extremity Veins, Limited Exam date and time: 05/23/2020 12:51 AM Age: 24 years old Clinical indication: Swelling (edema) of limb; Lower extremity, left; Additional info: Erythema and swelling lle/ ? abscess vs dvt, TECHNIQUE: Imaging protocol: Real-time Duplex ultrasound of the Left Lower Extremity with 2-D hair scale, color Doppler flow and spectral waveform analysis with image documentation. Limited exam focused on the left lower extremity veins. COMPARISON: No relevant prior studies available. FINDINGS: Left deep veins: Unremarkable. The common femoral, femoral, proximal profunda femoral and popliteal veins are patent without thrombus. Normal Doppler waveforms. Normal compressibility and/or augmentation response. Left superficial veins: Unremarkable. Saphenofemoral junction is patent without thrombus. Soft tissues: Unremarkable. US/CV venous duplex [facility] [id number] IMPRESSION: No evidence of deep vein thrombosis.
--- NOTE | 2020-05-23 00:07 | ED_ITS ---
HPI - Extremity Problem General: Chief complaint: Extremity Problem,Nontraumatic Stated complaint: LLE ABSCESS Time Seen by Provider: 05/22/20 23:31 History of Present Illness: HPI Narrative: 24-year-old male patient presents to the emergency department with left ankle and foot redness and swelling. He reports onset 2 days ago. States went to urgent care today and was advised to come to the ED for further evaluation. He denies trauma, denies injury, denies illicit substance abuse. He denies fever or chills. He reports pain with ambulation and flexion of his foot. He reports purple discoloration to the lateral ankle then developed redness and swelling 1 day later. MD Complaint: extremity pain and extremity swelling Onset (ago): day(s) (2) Pain Consistency: constant Location: left and lower extremity Severity scale (1-10): 5 Quality: aching and dull Radiation: proximal and distal Relieving factors: immobilization Exacerbating factors: weight bearing and walking Associated symptoms: Reports no associated symptoms; Deny chest pain, fever(s) or rash Review of Systems General: Reports: 10 or more systems reviewed and unremarkable except in HPI and below Const: Denies: fever(s), chills, body aches, fatigue, malaise or diaphoresis Eyes: Denies: blurry vision or eye redness ENMT: Denies: throat pain, dental pain or disequilibrium Card: Denies: chest pain, palpitations or irregular heart rhythm Resp: Denies: dyspnea, productive cough, non-productive cough or wheezing GI: Denies: abdominal pain, nausea or vomiting : Denies: dysuria Musc: Reports: joint pain, joint swelling and joint warmth; Denies: neck pain, back pain, muscle cramps or muscle weakness Skin/Breast: Denies: rash or pruritus Neuro: Denies: headache(s), weakness in extremities or behavioral changes Psych: Denies: anxiety or depression Burt/Lymph: Denies: easy bruising PFSH ED PFSH: Social History Smoking and tobacco status: current every day smoker cigarettes Packs smoked per day: 1 Quit status (tobacco): not considering quitting Desire information about alcohol rehabilitation?: No Desire information about substance/drug rehabilitation?: No Adopted: No Caregiver/support person: No Lives independently: Yes Housing: Homeless Marital status: Single Physical Exam Const: COMMON NORMALS: no acute distress, patient oriented x3, healthy appear ing and alert GENERAL APPEARANCE: cooperative, comfortable and well hydrated HENMT: COMMON NORMALS: normocephalic, Normal external nose present and moist oral mucous membranes HEAD & SCALP: normocephalic NOSE: Normal external nose present Eye: COMMON NORMALS: Equal, round and reactive pupils present and EOMs intact bilaterally GENERAL EYE: appearance normal, both eyes and all related structures PUPIL: Yes Equal, round and reactive pupils present Neck/C-Spine: COMMON NORMALS: full ROM and no lymphadenopathy GENERAL: Yes normal visual inspection and Yes trachea midline CERVICAL SPINE: Yes cervical ROM normal Lymph: LYMPHATIC: no lymphadenopathy noted Chest: COMMONS NORMALS: normal inspection of the chest and normal palpation of entire chest wall Resp: COMMON NORMALS: normal respiratory effort, No retractions, No use of accessory muscles and clear to auscultation bilaterally EFFORT & INSPECTION: Yes able to speak in complete sentences, No labored and No audible wheezes AUSCULTATION: clear to auscultation bilaterally Cardio: COMMON NORMALS: regular rate, regular rhythm, S1 normal heart sound present, S2 normal heart sound present and Peripheral pulses 2+ throughout RATE: regular rate RHYTHM: regular rhythm HEART SOUNDS: S1 normal heart sound present and S2 normal heart sound present PERIPHERAL PULSES: Peripheral pulses 2+ throughout GI: COMMON NORMALS: Normal to inspection, nondistended, normoactive bowel sounds present, Soft to palpation and non-tender INSPECTION: Yes normal to inspection PALPATION: Yes Soft to palpation : COMMON NORMALS: Yes no CVA tenderness BLADDER/KIDNEY EXAM: Yes no CVA tenderness Back/Pelvis: COMMON NORMALS: no CVA tenderness and thoracic and lumbar spine normal to inspection Extremity: COMMON NORMALS: normal to inspection, full ROM, capillary refill normal and no pedal edema GENERAL: Yes normal exam except as noted LEFT LOWER EXTREMITY: Yes ankle joint (erythema and edema present extending to the lateral foot) Left ankle: Yes palpation (tenderness of the medial and lateral malleolus), Yes ROM (Dorsi flexion extension intact but with pain) and Yes neurovascular exam (Distally intact) OTHER: Erythema of the left ankle, extending to the lateral foot, medial and lateral malleolus with tenderness as well as posterior lower calf. No abscess appreciated. No puncture wound or injury noted to the plantar or dorsal surface of the foot. Edema to the dorsal foot present as well. Erythema extends to the proximal lateral and medial malleolus. Neuro: COMMON NORMALS: patient oriented x3 and no focal motor deficits SENSORIUM/ORIENTATION: Yes alert Psych: COMMON NORMALS: mental status grossly normal, Normal thought process present and cooperative ACTIVITY/MOTOR BEHAVIOR: Yes appropriate eye contact THOUGHT PROCESS: Normal thought process present Skin: COMMON NORMALS: no rashes or lesions noted and turgor normal GENERAL SKIN EXAM: no rashes or lesions noted and turgor normal Course Vital Signs: Vital signs: Vital Signs Temperature 98.0 F 05/22/20 23:47 Pulse Rate 106 H 05/23/20 02:57 Respiratory Rate 18 05/23/20 02:57 Blood Pressure 132/80 05/23/20 02:57 Pulse Oximetry 98 05/23/20 02:57 MDM - Extremity (Nontraumatic) MDM Narrative: Medical decision making narrative: 24-year-old male patient presents to the emergency department with left lower extremity redness and swelling. He reports blue discoloration to the lateral malleolus 1 day prior to the onset of redness and swelling. He denies trauma or injury. Left ankle series revealed soft tissue swelling but no obvious fracture or displacement, radiology interpretation pending. Venous Doppler ultrasound of the left lower extremity did not reveal DVT or abscess. White blood count 18,000, elevated. K chemistry unremarkable, CRP 20.4, ESR 17, slightly elevated, patient did receive Tdap here in the ED. He also received 1 g of ceftriaxone. I discussed my concern regarding infection. He states has to go home as he has court appearance in the morning at 9 AM and cannot miss it. He agrees to return the emergency department if he develops fever chills or increased redness. He has maintained elevation of the left lower extremity during his stay, erythema to the foot, medial ankle has resolved, edema has improved, slight erythema remains to the lateral malleolus. He is able to dorsiflex and extend the left ankle/foot. Tendon exam intact. With improvement of erythema and edema with elevation, septic joint less likely as diagnosis. Is diagnosed with cellulitis here in the ED, plan with clindamycin as antibiotic of choice. banking services advisor referral for primary care follow-up in 2 to 3 days to ensure patient is improving has been completed. Lab Data: Labs: Lab Results 05/23/20 05/23/20 05/23/20 Range/Units 00:30 00:30 00:32 WBC 18.0 H (4.0-10.0) 10^3/ uL RBC 5.18 (4.1-5.3) 10^6/u L Hgb 14.7 (11.7-16.6) g/dL Hct 43.6 (42.0-52.0) % MCV 84.2 (80-94) fL MCH 28.4 (28.0-34.0) pg MCHC 33.7 (30.0-36.0) g/dL RDW 12.0 L (12.1-15.1) % Plt Count 312 (130-400) 10^3/c mm MPV 9.5 (7.4-10.4) fL Neut % (Auto) 77.2 % Lymph % (Auto) 14.6 % [place] % (Auto) 6.6 % Eos % (Auto) 0.9 % Baso % (Auto) 0.3 % Neut # (Auto) 13.88 H (1.8-7.7) 10^3/u L Lymph # (Auto) 2.6 (0.8-4.8) 10^3/u L [place] # (Auto) 1.2 H (0.2-0.9) 10^3/u L Eos # (Auto) 0.2 (0.0-0.8) 10^3/u L Baso # (Auto) 0.1 (0.0-0.1) 10^3/u L Nucleated RBC % (a uto) 0 % Nucleated RBCs # 0.0 /100WBC ESR 17 H (0-10) mm/hr Sodium (136-145) mmol/L Potassium (3.5-5.1) mmol/L Chloride (98-107) mmol/L Carbon Dioxide (22-29) mmol/L Anion Gap (5-19) BUN (6-20) mg/dL Creatinine (0.7-1.2) mg/dL GFR Calculation (90-130) mL/min Glucose (65-115) mg/dL Calculated Osmolal ity (285-295) mOsm/k g Calcium (8.5-10.5) mg/dL Total Bilirubin (0.15-1.2) mg/dL AST (0-40) U/L ALT (0-41) U/L Alkaline Phosphata se (40-130) IU/L C-Reactive Protein 20.4 H (0.0-4.9) mg/L Total Protein (6.6-8.7) g/dL Albumin (3.5-5.2) g/dL Globulin (1.3-4.6) g/dL 05/23/20 Range/Units 00:32 WBC (4.0-10.0) 10^3/ uL RBC (4.1-5.3) 10^6/u L Hgb (11.7-16.6) g/dL Hct (42.0-52.0) % MCV (80-94) fL MCH (28.0-34.0) pg MCHC (30.0-36.0) g/dL RDW (12.1-15.1) % Plt Count (130-400) 10^3/c mm MPV (7.4-10.4) fL Neut % (Auto) % Lymph % (Auto) % [place] % (Auto) % Eos % (Auto) % Baso % (Auto) % Neut # (Auto) (1.8-7.7) 10^3/u L Lymph # (Auto) (0.8-4.8) 10^3/u L [place] # (Auto) (0.2-0.9) 10^3/u L Eos # (Auto) (0.0-0.8) 10^3/u L Baso # (Auto) (0.0-0.1) 10^3/u L Nucleated RBC % (a uto) % Nucleated RBCs # /100WBC ESR (0-10) mm/hr Sodium 136 (136-145) mmol/L Potassium 3.8 (3.5-5.1) mmol/L Chloride 99 (98-107) mmol/L Carbon Dioxide 28 (22-29) mmol/L Anion Gap 12.8 (5-19) BUN 13 (6-20) mg/dL Creatinine 0.8 (0.7-1.2) mg/dL GFR Calculation 118.8 (90-130) mL/min Glucose 81 (65-115) mg/dL Calculated Osmolal ity 281 L (285-295) mOsm/k g Calcium 9.2 (8.5-10.5) mg/dL Total Bilirubin 0.3 (0.15-1.2) mg/dL AST 12 (0-40) U/L ALT 16 (0-41) U/L Alkaline Phosphata se 89 (40-130) IU/L C-Reactive Protein (0.0-4.9) mg/L Total Protein 7.0 (6.6-8.7) g/dL Albumin 4.4 (3.5-5.2) g/dL Globulin 2.6 (1.3-4.6) g/dL Discharge Plan Discharge Patient Disposition: Home Clinical Impression: Cellulitis of ankle Condition: Stable Prescriptions: New clindamycin HCl 300 mg capsule 300 mg PO QID 7 Days Qty: 28 RF: 0 IBU 600 mg tablet 600 mg PO TID PRN (Reason: pain) Qty: 20 RF: 0 No Action citalopram 20 mg tablet 20 mg PO DAILY 30 Days Qty: 30 RF: 1 Discharge Orders: Discharge ED (Routine); Ordered 05/23/20 Ordered By: Latoya Jackson Discharge Diet: Usual diet Discharge Activity: Limit activity as instructed Patient Instructions: Diphtheria/Acellular Pertussis/Tetanus Booster Vaccine (Tdap) (Injection), Crutch Instructions (ED), Cellulitis (ED), Opioid Safety Activity Restrictions/Additional Instructions: Take antibiotics until all gone, even if feeling better If increased redness or swelling occurs to the left ankle, return to the emergency department for further evaluation Follow-up with your primary care provider in 2 to 3 days for reevaluation, social studies department chair will be contacting you with an appointment Keep the left lower extremity elevated to help with redness and swelling. May use crutches to help with ambulation May apply cool compresses as needed to the affected area If you develop fever, nausea vomiting or worsening pain, return to the emergency room immediately Coding Level of Care Code ED Custodial Supervisor for Ruddy Guerrero Exam Comprehensive
--- NOTE | 2020-05-23 00:45 | XR_ITS ---
WS: [id number] Left ankle, 3 views, 05/23/2020 Clinical Data: redness and swelling of the left ankle, no injury Comparison: None. Findings: No fractures or dislocations are seen. The ankle mortise is normal. The talus and calcaneus are unrem arkable. There is soft tissue swelling over the medial and lateral malleolus. XR/XR ankle LT min 3V* [id number] Impression: 1. Negative for fracture of the left ankle. 2. Soft tissue swelling over medial and lateral malleolus.
[2020-05-23] MEDS: cefTRIAXone 1,000 MG in sodium chloride 0.9% (plus) 50 ML 100 MG IV (00:51)
[2020-05-23] MEDS: tetanus-dipt-pertussis 0.5 mL SDV IM (00:52)
[2020-05-23 01:06] LABS: Alanine Aminotransferase 16 U/L (0-41); Albumin Level 4.4 g/dL (3.5-5.2); Alkaline Phosphatase 89 IU/L (40-130); Anion Gap 12.8 (5-19); Aspartate Amino Transferase 12 U/L (0-40); Blood Urea Nitrogen 13 mg/dL (6-20); Calcium 9.2 mg/dL (8.5-10.5); Carbon Dioxide 28 mmol/L (22-29); Chloride 99 mmol/L (98-107); Globulin 2.6 g/dL (1.3-4.6); Glomerular Filtration Rate 118.8 mL/min (90-130); Glucose 81 mg/dL (65-115); Osmolality Calculated 281 mOsm/kg (285-295); Potassium 3.8 mmol/L (3.5-5.1); Sodium 136 mmol/L (136-145); Total Bilirubin 0.3 mg/dL (0.15-1.2)
[2020-05-23 01:08] LABS: C Reactive Protein 20.4 mg/L (0.0-4.9)
[2020-05-23 01:26] LABS: Basophils # 0.1 10^3/uL (0.0-0.1); Basophils % 0.3 %; Eosinophils # 0.2 10^3/uL (0.0-0.8); Eosinophils % 0.9 %; Hematocrit 43.6 % (42.0-52.0); Hemoglobin 14.7 g/dL (11.7-16.6); Lymphocytes # 2.6 10^3/uL (0.8-4.8); Lymphocytes % 14.6 %; Mean Corpuscular HGB Conc 33.7 g/dL (30.0-36.0); Mean Corpuscular Hemoglobin 28.4 pg (28.0-34.0); Mean Corpuscular Volume 84.2 fL (80-94); Mean Platelet Volume 9.5 fL (7.4-10.4); Monocytes # 1.2 10^3/uL (0.2-0.9); Monocytes % 6.6 %; Neutrophils # 13.88 10^3/uL (1.8-7.7); Neutrophils % 77.2 %; Nucleated Red Blood Cells % 0 %; Platelet Count 312 10^3/cmm (130-400); Red Blood Count 5.18 10^6/uL (4.1-5.3)
[2020-05-23 02:04] LABS: Erythrocyte Sedimentation Rate 17 mm/hr (0-10)
[2020-05-23] MEDS: ketorolac 30 mg/mL INJ 15 MG IVP (02:21)
[2020-05-23] MEDS: clindamycin 150 mg Capsule 300 MG PO (02:21)
[2020-05-23 02:57] VITALS: BP 132/80; PULSE 106; RESP 18; O2SAT 98
--- NOTE | 2020-05-23 09:39 | DCPLANNER ---
logistics planning manager received message to schedule PCP appointment 2-3 days for recheck. logistics planning manager called patient, who asked that CM call his life partner, Nasrin. CM called Nasrin, who requested appointment with [facility]. CM called [facility], provided patient's contact information so she can call pt's life partner to schedule appointment. FREDRICK called pt's life partner to let her know [facility] will be calling her to get appt scheduled.
== END 2020-05-23 02:55 | disposition home or self-care (01) ==
PROVIDERS: Emergency Provider Nurse Practitioner Family
DX: L03.116 Cellulitis of left lower limb (principal); F17.210 Nicotine dependence, cigarettes, uncomplicated; Z23 Encounter for immunization
CPT/HCPCS: 73610; 80053; 85025; 85651; 86140; 90471; 90715; 93971; 96365; 96375; 99284; E0114; J0696; J1885

== ENCOUNTER → 2021-03-18 11:50 | Outpatient (BNVA) | payer MEDICAID, SELFPAY | PROVIDERS: Visit Provider Nurse Practitioner Family | DX: Z20.822 Contact with and (suspected) exposure to COVID-19 (principal) | CPT/HCPCS: 87635 ==